=== PATIENT | female | born 1935 | race American Indian/Alaskan Native ===

== ENCOUNTER 2017-07-14 14:53 | Emergency (ER) | payer MEDICARE, MEDICAID ==
--- NOTE | 2017-07-14 14:53 | EDM.PDOC ---
ED HPI GENERAL MEDICAL PROBLEM - General Chief Complaint: Cardiovascular Problem Stated Complaint: BY AMBULANCE,HYPERTENSION Time Seen by Provider: 07/14/17 14:45 Source of Information: Reports: Patient, RN (home health nurse) History Limitations: Reports: No Limitations - History of Present Illness INITIAL COMMENTS - FREE TEXT/NARRATIVE: This 81 yo female patient was brought to the ED by [facility] due to high blood pressure. The patient was sent to the ED by the home health nurse reporting that the patient has not been taking her medications correctly. The patient reports she took 1 blood pressure medication this morning and 1 aspirin this morning. According to the patient's records, she is supposed to be taking Metoprolol Tartrate (50 mg) 1 by mouth 2 times per day and Lisinopil (20 mg) to take 1 by mouth daily. The patient reports her daughter fills her pill boxes, but her son also did something with her medications. The patient does not know what medications she is on or when she is supposed to be taking the medications. The patient reports she has an appointment with her primary care facility tomorrow to talk about her medications. The patient reports she feels normal at this time. Onset: Today Duration: Constant Location: Reports: Other Severity: Mild Improves with: Reports: None Worsens with: Reports: None Associated Symptoms: Reports: No Other Symptoms - Related Data Allergies Allergy/AdvReac Type Severity Reaction Status Date / Time No Known Allergies Allergy Verified 07/14/17 14:25 Home Meds: Home Meds Lisinopril [Prinivil] 20 mg PO DAILY #30 tablet 02/05/16 [Rx] Multivitamins/Minerals [Vitamins and Minerals] 1 tab PO WITHBREAKFAST tablet [Rx] Sodium Chloride 1 gm PO BID #60 tablet 02/05/16 [Rx] Acetaminophen 500 mg PO TID PRN 07/14/17 [History] Ca Carbonate/Vitamin D3/Vit K [Calcium + D Soft Chewable Tab] 1 each PO DAILY [History] Docusate Sodium/Sennosides [Senna Plus] 1 tab PO BEDTIME 07/14/17 [History] Iron Polysaccharide Complex [Ferric X-150] 1 cap PO DAILY 07/14/17 [History] Loperamide [Imodium] 1 tab PO TID PRN 07/14/17 [History] Magnesium Oxide [Magnesium] 200 mg PO DAILY 07/14/17 [History] Metoprolol Tartrate 50 mg PO BID 07/14/17 [History] Ranitidine HCl [Ranitidine] 150 mg PO DAILY 07/14/17 [History] Past Medical History HEENT History: Reports: None Cardiovascular History: Reports: Hypertension Respiratory History: Reports: None Gastrointestinal History: Reports: Chronic Constipation Genitourinary History: Reports: None CHILD ADVOCATE History: Reports: None Musculoskeletal History: Reports: None Neurological History: Reports: None Psychiatric History: Reports: None Endocrine/Metabolic History: Reports: None Hematologic History: Reports: None Immunologic History: Reports: None Oncologic (Cancer) History: Reports: None Dermatologic History: Reports: Other (See Below) Other Dermatologic History: See wound assessment - Infectious Disease History Infectious Disease History: Reports: None - Past Surgical History Head Surgeries/Procedures: Reports: None Cardiovascular Surgical History: Reports: None Social & Family History - Family History Family Medical History: Noncontributory - Tobacco Use Smoking Status *Q: Never Smoker - Caffeine Use Caffeine Use: Reports: Coffee - Alcohol Use Days Per Week of Alcohol Use: 0 Number of Drinks Per Day: 1 Total Drinks Per Week: 0 - Recreational Drug Use Recreational Drug Use: No ED ROS GENERAL - Review of Systems Review Of Systems: ROS reveals no pertinent complaints other than HPI. ED EXAM, GENERAL - Physical Exam Exam: See Below Exam Limited By: No Limitations General Appearance: Alert, WD/WN, No Apparent Distress Eye Exam: Bilateral Eye: EOMI, Normal Inspection, PERRL Ears: Normal External Exam, Normal Canal, Hearing Grossly Normal, Normal TMs Nose: Normal Inspection, Normal Mucosa, No Blood Throat/Mouth: Normal Inspection, Normal Lips, Normal Teeth, Normal Gums, Normal Oropharynx, Normal Voice, No Airway Compromise Head: Atraumatic, Normocephalic Neck: Normal Inspection, Supple, Non-Tender, Full Range of Motion Respiratory/Chest: No Respiratory Distress, Lungs Clear, Normal Breath Sounds, No Accessory Muscle Use, Chest Non-Tender Cardiovascular: Normal Peripheral Pulses, No Edema, No Gallop, No JVD, No Murmur , No Rub, Tachycardia GI/Abdominal: Normal Bowel Sounds, Soft, Non-Tender, No Organomegaly, No Distention, No Abnormal Bruit, No Mass (Female) Exam: Deferred Rectal (Female) Exam: Deferred Back Exam: Normal Inspection, Full Range of Motion, NT Extremities: Normal Inspection, Normal Range of Motion, Non-Tender, Normal Capillary Refill, No Pedal Edema Neurological: Alert, Oriented, CN II-XII Intact, Normal Cognition, Normal Gait, Normal Reflexes, No Motor/Sensory Deficits Psychiatric: Normal Affect, Normal Mood Skin Exam: Warm, Dry, Intact, Normal Color, No Rash Lymphatic: No Adenopathy Course - Vital Signs Last Recorded V/S: Last Vital Signs Temp 36.6 C 07/14/17 14:31 Pulse 103 H 07/14/17 15:48 Resp 17 07/14/17 14:31 BP 172/105 H 07/14/17 15:48 Pulse Ox 97 07/14/17 14:31 - Orders/Labs/Meds Orders: Active Orders 24 hr Category Date Time Status EKG Documentation Completion [RC] URGENT Care 07/14/17 14:37 Active Labs: Laboratory Tests 07/14/17 07/14/17 Range/Units 14:50 14:50 WBC 7.3 (5.0-10.0) 10^3/uL RBC 4.38 (4.2-5.4) 10^6/uL Hgb 12.5 D (12.0-16.0) g/dL Hct 38.4 (37.0-47.0) % MCV 87.7 (80-100) fL MCH 28.5 (27.0-34.0) pg MCHC 32.6 L (33.0-35.0) g/dL Plt Count 308 D (150-450) 10^3/uL Neut % (Auto) 65.5 (42.2-75.2) % Lymph % (Auto) 23.0 (20.5-50.1) % [place] % (Auto) 9.4 H (2-8) % Eos % (Auto) 1.8 (1.0-3.0) % Baso % (Auto) 0.3 (0.0-1.0) % Sodium 132 L (135-145) mmol/L Potassium 3.8 (3.6-5.0) mmol/L Chloride 98 L (101-111) mmol/L Carbon Dioxide 25.0 (21.0-31.0) mmol/L Anion Gap 12.8 BUN 11 (7-18) mg/dL Creatinine 0.8 (0.6-1.3) mg/dL Est Cr Clr Drug Dosing 54.69 mL/min Estimated GFR (MDRD) > 60 BUN/Creatinine Ratio 13.75 Glucose 104 (74-105) mg/dL Calcium 8.7 (8.4-10.2) mg/dl Total Bilirubin 0.5 (0.2-1.0) mg/dL AST 23 (10-42) IU/L ALT 15 (10-60) IU/L Alkaline Phosphatase 85 (42-121) IU/L Troponin I < 0.02 (0.00-0.02) ng/ml Total Protein 7.6 (6.7-8.2) g/dl Albumin 3.3 (3.2-5.5) g/dl Globulin 4.3 Albumin/Globulin Ratio 0.77 Meds: Medications Discontinued Medications Generic Name Dose Route Start Last Admin Trade Name Freq PRN Reason Stop Dose Admin Metoprolol Tartrate 25 mg 07/14/17 15:36 07/14/17 15:48 Lopressor PO 07/14/17 15:37 25 mg ONETIME ONE Administration Departure - Departure Time of Disposition: 16:25 Disposition: Home, Self-Care 01 Condition: Fair Clinical Impression: Noncompliance with medication regimen Hypertension Qualifiers: Hypertension type: unspecified Qualified Code(s): I10 - Essential (primary) hypertension Instructions: Hypertension, Vovb-iz-Mlem, Managing Your Hypertension Forms: ED Department Discharge Care Plan Goals: The patient was advised of the examination, lab, EKG and x-ray results during the visit. The patient was advised to take her medications as prescribed. The patient should review her medications with her primary care provider tomorrow as scheduled. If the patient has any additional symptoms or concerns, the patient should follow-up with her primary care facility or return to the emergency department. - My Orders Last 24 Hours: My Active Orders 07/14/17 14:37 EKG Documentation Completion [RC] URGENT - Assessment/Plan Last 24 Hours: My Active Orders 07/14/17 14:37 EKG Documentation Completion [RC] URGENT
[2017-07-14 15:26] LABS: ANION GAP 12.8; CHLORIDE,CL 98 mmol/L (101-111); SODIUM,NA 132 mmol/L (135-145)
[2017-07-14] MEDS ORDERED: Metoprolol Tartrate 25 MG Tab PO ONE (15:36)
[2017-07-14 15:49] VITALS: BP 172/105
--- NOTE | 2017-07-15 13:19 | EKG ---
07/14/2017- ALEJANDRO PAZ - EKG per my reading shows sinus rhythm at a rate of 105. [facility] /[id number]
== END 2017-07-14 16:32 | disposition home or self-care (01) ==
LOC: DL.ED 14:53
DX: I10 Essential (primary) hypertension (principal); Z91.14 Patient's other noncompliance with medication regimen; Z79.899 Other long term (current) drug therapy
CPT/HCPCS: 36415; 71045; 80053; 84484; 85025; 93005; 93010; 99284; A9270

== ENCOUNTER 2018-07-15 16:16 | Inpatient (IN) | payer MEDICARE, MEDICAID ==
--- NOTE | 2018-07-15 16:48 | EDM.PDOC ---
ED HPI GENERAL MEDICAL PROBLEM - General Chief Complaint: General Stated Complaint: UNKNOWN-AMBULANCE Time Seen by Provider: 07/15/18 16:47 Source of Information: Reports: Patient, EMS, EMS Notes Reviewed, RN, RN Notes Reviewed, Other (POA, drywall metal stud worker, home health nurse) History Limitations: Reports: No Limitations - History of Present Illness INITIAL COMMENTS - FREE TEXT/NARRATIVE: Pt to ER per [facility] per the request of POA and home health nurse. POA states the patient was removed from the longterm by family and has not been well taken care of there. Patient BP running high. Patient states she has not been ill recently and does not have any pain anywhere. Onset: Gradual - Related Data Allergies Allergy/AdvReac Type Severity Reaction Status Date / Time No Known Allergies Allergy Verified 07/14/17 14:25 Home Meds: Home Meds Multivitamins/Minerals [Vitamins and Minerals] 1 tab PO WITHBREAKFAST tablet [Rx] Sodium Chloride 1 gm PO BID #60 tablet 02/05/16 [Rx] Acetaminophen 500 mg PO TID PRN 07/14/17 [History] Ca Carbonate/Vitamin D3/Vit K [Calcium + D Soft Chewable Tab] 1 each PO DAILY [History] Docusate Sodium/Sennosides [Senna Plus] 1 tab PO BEDTIME 07/14/17 [History] Iron Polysaccharide Complex [Ferric X-150] 150 mg PO DAILY 07/14/17 [History] Loperamide [Imodium] 1 cap PO TID PRN 07/14/17 [History] Magnesium Oxide [Magnesium] 200 mg PO DAILY 07/14/17 [History] Metoprolol Tartrate 50 mg PO BID 07/14/17 [History] Ranitidine HCl [Ranitidine] 150 mg PO DAILY 07/14/17 [History] Past Medical History HEENT History: Reports: None Cardiovascular History: Reports: Hypertension Respiratory History: Reports: None Gastrointestinal History: Reports: Chronic Constipation Genitourinary History: Reports: None HOME SPECIALIST History: Reports: None Musculoskeletal History: Reports: None Neurological History: Reports: None Psychiatric History: Reports: None Endocrine/Metabolic History: Reports: None Hematologic History: Reports: None Immunologic History: Reports: None Oncologic (Cancer) History: Reports: None Dermatologic History: Reports: Other (See Below) Other Dermatologic History: See wound assessment - Infectious Disease History Infectious Disease History: Reports: None - Past Surgical History Head Surgeries/Procedures: Reports: None Cardiovascular Surgical History: Reports: None Social & Family History - Family History Family Medical History: Noncontributory - Caffeine Use Caffeine Use: Reports: Coffee ED ROS GENERAL - Review of Systems Review Of Systems: ROS reveals no pertinent complaints other than HPI. ED EXAM, GENERAL - Physical Exam Exam: See Below Exam Limited By: No Limitations General Appearance: Alert, WD/WN, No Apparent Distress Eye Exam: Bilateral Eye: EOMI Ears: Normal External Exam, Hearing Grossly Normal Nose: Normal Inspection Throat/Mouth: Normal Inspection, Normal Voice, No Airway Compromise Head: Atraumatic, Normocephalic Neck: Normal Inspection, Supple, Non-Tender Respiratory/Chest: No Accessory Muscle Use, Chest Non-Tender, Crackles (bases bilaterally), Rhonchi (upper lobes bilaterally) Cardiovascular: Normal Peripheral Pulses, Regular Rate, Rhythm, No Edema, No Gallop, No JVD, No Murmur, No Rub GI/Abdominal: Normal Bowel Sounds, Soft, Non-Tender (Female) Exam: Deferred Rectal (Female) Exam: Deferred Back Exam: Normal Inspection, Full Range of Motion Extremities: Limited Range of Motion Neurological: Alert, Oriented Psychiatric: Normal Affect, Normal Mood Skin Exam: Warm, Dry, Other (lower legs and feet very dry and scaly, sore to the outer right ankle, approx 1.5 x 1.5. ) Lymphatic: No Adenopathy Course - Vital Signs Last Recorded V/S: Last Vital Signs Temp 98.2 F 07/15/18 17:50 Pulse 95 07/15/18 17:50 Resp 16 07/15/18 17:50 BP 173/99 H 07/15/18 17:50 Pulse Ox 99 07/15/18 17:50 - Orders/Labs/Meds Orders: Active Orders 24 hr Category Date Time Status Peripheral IV Care [RC] . DIRECTED Care 07/15/18 17:28 Active Chest 1V Frontal [CR] Stat Exams 07/15/18 17:27 Taken CULTURE URINE [RM] Stat Lab 07/15/18 17:30 Received Sodium Chloride 0.9% [Normal Saline] 1,000 ml Med 07/15/18 18:25 Active IV .BOLUS Sodium Chloride 0.9% [Saline Flush] Med 07/15/18 17:27 Active 10 ml FLUSH ASDIRECTED PRN Peripheral IV Insertion Adult [OM.PC] Stat Oth 07/15/18 17:27 Ordered Medication Orders Sodium Chloride (Normal Saline) 1,000 mls @ 100 mls/hr IV .BOLUS ONE Stop: 07/16/18 04:24 Last Admin: 07/15/18 18:32 Dose: 100 mls/hr Sodium Chloride (Saline Flush) 10 ml FLUSH ASDIRECTED PRN PRN Reason: Keep Vein Open Last Admin: 07/15/18 17:43 Dose: 10 ml Labs: Laboratory Tests 07/15/18 07/15/18 07/15/18 Range/Units 17:30 17:36 17:36 WBC 6.3 (5.0-10.0) 10^3/uL RBC 4.02 L (4.2-5.4) 10^6/uL Hgb 9.6 L D (12.0-16.0) g/dL Hct 31.3 L (37.0-47.0) % MCV 77.9 L D (80-100) fL MCH 23.9 L (27.0-34.0) pg MCHC 30.7 L (33.0-35.0) g/dL Plt Count 294 (150-450) 10^3/uL Neut % (Auto) 64.0 (42.2-75.2) % Lymph % (Auto) 26.9 (20.5-50.1) % [place] % (Auto) 7.1 (2-8) % Eos % (Auto) 1.7 (1.0-3.0) % Baso % (Auto) 0.3 (0.0-1.0) % Sodium 128 L (135-145) mmol/L Potassium 3.4 L (3.6-5.0) mmol/L Chloride 96 L (101-111) mmol/L Carbon Dioxide 21.0 (21.0-31.0) mmol/L Anion Gap 14.4 BUN 14 (7-18) mg/dL Creatinine 0.7 (0.6-1.3) mg/dL Est Cr Clr Drug Dosing 52.58 mL/min Estimated GFR (MDRD) > 60 BUN/Creatinine Ratio 20.00 Glucose 90 (74-105) mg/dL Calcium 8.4 (8.4-10.2) mg/dl Total Bilirubin 0.5 (0.2-1.0) mg/dL AST 22 (10-42) IU/L ALT 10 (10-60) IU/L Alkaline Phosphatase 87 (42-121) IU/L Total Protein 8.5 H (6.7-8.2) g/dl Albumin 3.5 (3.2-5.5) g/dl Globulin 5.0 Albumin/Globulin Ratio 0.70 Urine Color Yellow (YELLOW) Urine Appearance Turbid (CLEAR) Urine pH 7.0 (5.0-9.0) Ur Specific [place] 1.015 (1.005-1.030) Urine Protein Negative (NEGATIVE) Urine Glucose (UA) Negative (NEGATIVE) Urine Ketones Negative (NEGATIVE) Urine Occult Blood Negative (NEGATIVE) Urine Nitrite Positive H (NEGATIVE) Urine Bilirubin Negative (NEGATIVE) Urine Urobilinogen 0.2 (0.2-1.0) mg/dL Ur Leukocyte Esterase Moderate H (NEGATIVE) Urine RBC 0-5 /HPF Urine WBC 20-30 H (0-5/HPF) /HPF Ur Epithelial Cells Few /HPF Amorphous Sediment Few (0/HPF) /HPF Urine Bacteria Many H (0-FEW/HPF) /HPF Urine Mucus Many H /LPF Meds: Medications Generic Name Dose Route Start Last Admin Trade Name Freq PRN Reason Stop Dose Admin Sodium Chloride 1,000 mls @ 100 mls/hr 07/15/18 18:25 07/15/18 18:32 Normal Saline IV 07/16/18 04:24 100 mls/hr .BOLUS ONE Administration Sodium Chloride 10 ml 07/15/18 17:27 07/15/18 17:43 Saline Flush FLUSH 10 ml ASDIRECTED PRN Administration Keep Vein Open - Radiology Interpretation Free Text/Narrative:: Chest xray: FINDINGS: Lungs: There is diffuse mild nonspecific prominence of the subpleural pulmonary interstitium. No focal consolidation. Prior questionable density right upper lung does not persist, and likely represented summation shadow artifact. Pleural space: Unremarkable. No pleural effusion. No pneumothorax. Heart/Mediastinum: Unremarkable. No cardiomegaly. Bones/joints: Unremarkable. IMPRESSION: Interstitial prominence is nonspecific, possibly representing bronchitis. Thank you for allowing us to participate in the care of your patient. Dictated and Authenticated by: Ovidio Cueva MD 07/15/2018 6:02 PM Central Time ([place] & [place]) See rad report - Re-Assessments/Exams Free Text/Narrative Re-Assessment/Exam: 07/15/18 18:40 Discussed patient case with Dr. Ibanez who agreed to accept the patient for admission to observation. Called AMADEO Yepez, who will come to the ER and visit with Dr. Ibanez. Departure - Departure Time of Disposition: 18:39 Disposition: Refer to Observation Condition: Fair Clinical Impression: Hyponatremia UTI (urinary tract infection) Qualifiers: Urinary tract infection type: site unspecified Hematuria presence: without hematuria Qualified Code(s): N39.0 - Urinary tract infection, site not specified Hypertension Qualifiers: Hypertension type: unspecified Qualified Code(s): I10 - Essential (primary) hypertension Anemia Qualifiers: Anemia type: unspecified type Qualified Code(s): D64.9 - Anemia, unspecified - Discharge Information *PRESCRIPTION DRUG MONITORING PROGRAM REVIEWED*: No *COPY OF PRESCRIPTION DRUG MONITORING REPORT IN PATIENT LOTTIE: No Forms: ED Department Discharge - My Orders Last 24 Hours: My Active Orders 07/15/18 17:27 Chest 1V Frontal [CR] Stat Sodium Chloride 0.9% [Saline Flush] 10 ml FLUSH ASDIRECTED PRN Peripheral IV Insertion Adult [OM.PC] Stat 07/15/18 17:28 Peripheral IV Care [RC] . DIRECTED 07/15/18 17:30 CULTURE URINE [RM] Stat 07/15/18 18:25 Sodium Chloride 0.9% [Normal Saline] 1,000 ml IV .BOLUS - Assessment/Plan Last 24 Hours: My Active Orders 07/15/18 17:27 Chest 1V Frontal [CR] Stat Sodium Chloride 0.9% [Saline Flush] 10 ml FLUSH ASDIRECTED PRN Peripheral IV Insertion Adult [OM.PC] Stat 07/15/18 17:28 Peripheral IV Care [RC] . DIRECTED 07/15/18 17:30 CULTURE URINE [RM] Stat 07/15/18 18:25 Sodium Chloride 0.9% [Normal Saline] 1,000 ml IV .BOLUS
[2018-07-15] MEDS ORDERED: Sodium Chloride 0.9% 10 ML Syringe FLUSH PRN (17:27)
[2018-07-15 18:04] LABS: ANION GAP 14.4; CHLORIDE,CL 96 mmol/L (101-111); SODIUM,NA 128 mmol/L (135-145)
[2018-07-15] MEDS ORDERED: Sodium Chloride 0.9% 1,000 ML IV ONE (18:25)
[2018-07-15] MEDS ORDERED: Aluminum Hydroxide/Magnesium Hydroxide/Simethicone Susp 30 ML Cup PO PRN (20:07)
[2018-07-15] MEDS ORDERED: Magnesium Hydroxide 400 MG/5 ML Susp 30 ML Cup PO PRN (20:07)
[2018-07-15] MEDS ORDERED: Acetaminophen 325 MG Tab PO PRN (20:07)
[2018-07-15] MEDS ORDERED: Docusate Sodium 100 MG Cap PO PRN (20:07)
[2018-07-15] MEDS ORDERED: Bisacodyl 10 MG Supp RECTAL PRN (20:07)
[2018-07-15] MEDS ORDERED: Loperamide 2 MG Cap PO PRN (20:14)
[2018-07-15] MEDS ORDERED: Sodium Chloride 0.9% 500 ML IV SCH (20:15)
--- NOTE | 2018-07-15 20:20 | PCM.HP ---
H&P History of Present Illness - General Date of Service: 07/15/18 Admit Problem/Dx: Admission Diagnosis/Problem Admission Diagnosis/Problem UTI (urinary tract infection) due to urinary indwelling catheter Source of Information: Patient History Limitations: Reports: No Limitations - History of Present Illness Initial Comments - Free Text/Narative: Patient is 82 y/o F with past medical history of hypertension, iron deficiency anemia, chronic venous leg ulcers. Patient was brought to the ER by POA who reports patient is not being taken care of well at home. Patient was removed from long-term by family and brought home recently. As per POA, patient is not well taken care of. When I asked the patient why she was here she said she does not know. She denies any complaint. No chest pain, SOB. Initial evaluation in the ER showed UTI, hyponatremia, hypokalemia. Cxr showed evidence of bronchitis. Patient is being admitted to the hospital for further evaluation and management. POA requesting patient be placed back to [place]. Onset of Symptoms: Reports: Today, Gradual Improves with: Reports: None Worsens with: Reports: None Associated Symptoms: Reports: No Other Symptoms - Related Data Allergies/Adverse Reactions: Allergies Allergy/AdvReac Type Severity Reaction Status Date / Time No Known Allergies Allergy Verified 07/14/17 14:25 Home Medications: Home Meds Multivitamins/Minerals [Vitamins and Minerals] 1 tab PO WITHBREAKFAST tablet [Rx] Sodium Chloride 1 gm PO BID #60 tablet 02/05/16 [Rx] Acetaminophen 500 mg PO TID PRN 07/14/17 [History] Ca Carbonate/Vitamin D3/Vit K [Calcium + D Soft Chewable Tab] 1 each PO DAILY [History] Docusate Sodium/Sennosides [Senna Plus] 1 tab PO BEDTIME 07/14/17 [History] Iron Polysaccharide Complex [Ferric X-150] 150 mg PO DAILY 07/14/17 [History] Loperamide [Imodium] 1 cap PO TID PRN 07/14/17 [History] Magnesium Oxide [Magnesium] 200 mg PO DAILY 07/14/17 [History] Metoprolol Tartrate 50 mg PO BID 07/14/17 [History] Ranitidine HCl [Ranitidine] 150 mg PO DAILY 07/14/17 [History] Past Medical History HEENT History: Reports: None Cardiovascular History: Reports: Hypertension Respiratory History: Reports: None Gastrointestinal History: Reports: Chronic Constipation Genitourinary History: Reports: None DOMESTIC MAID History: Reports: None Musculoskeletal History: Reports: None Neurological History: Reports: None Psychiatric History: Reports: None Endocrine/Metabolic History: Reports: None Hematologic History: Reports: None Immunologic History: Reports: None Oncologic (Cancer) History: Reports: None Dermatologic History: Reports: Other (See Below) Other Dermatologic History: See wound assessment - Infectious Disease History Infectious Disease History: Reports: None - Past Surgical History Head Surgeries/Procedures: Reports: None Cardiovascular Surgical History: Reports: None Social & Family History - Family History Family Medical History: Noncontributory - Tobacco Use Smoking Status *Q: Never Smoker - Caffeine Use Caffeine Use: Reports: Coffee - Recreational Drug Use Recreational Drug Use: No H&P Review of Systems - Review of Systems: Review Of Systems: See Below General: Reports: No Symptoms HEENT: Reports: No Symptoms Pulmonary: Reports: No Symptoms Cardiovascular: Reports: No Symptoms Gastrointestinal: Reports: No Symptoms Genitourinary: Reports: No Symptoms Musculoskeletal: Reports: No Symptoms Skin: Reports: No Symptoms Psychiatric: Reports: No Symptoms Neurological: Reports: No Symptoms Hematologic/Lymphatic: Reports: No Symptoms Immunologic: Reports: No Symptoms Exam - Exam Exam: See Below - Vital Signs Vital Signs: Last Vital Signs Temp 97.7 F 07/15/18 19:32 Pulse 109 H 07/15/18 19:32 Resp 18 07/15/18 19:32 BP 141/88 H 07/15/18 19:32 Pulse Ox 100 07/15/18 19:32 Weight: 93 lb 9.6 oz - Exam Quality Assessment: DVT Prophylaxis General: Alert, Oriented, 4 HEENT: PERRLA, Hearing Intact, Mucosa Moist & [place], Nares Patent, Normal Nasal Septum, Posterior Pharynx Clear, Conjunctiva Clear, EOMI, EACs Clear, TMs Clear Neck: Supple, Trachea Midline, 2 Lungs: Clear to Auscultation, Normal Respiratory Effort Cardiovascular: Regular Rate, Regular Rhythm GI/Abdominal Exam: Normal Bowel Sounds, Soft, Non-Tender, No Organomegaly, No Distention, No Abnormal Bruit, No Mass, Pelvis Stable (Female) Exam: Normal External Exam, Normal Speculum Exam, Normal Bimanual Exam Rectal (Female) Exam: Normal Exam, Normal Rectal Tone Back Exam: Normal Inspection, Full Range of Motion, NT Extremities: Normal Inspection, Normal Range of Motion, Non-Tender, No Pedal Edema, Normal Capillary Refill, Other (chronic venous ulcer to right leg) Skin: Warm, Dry, Intact Neurological: Cranial Nerves Intact, Reflexes Equal Bilateral Neuro Extensive - Mental Status: Alert, Oriented x3, Normal Mood/Affect, Normal Cognition Neuro Extensive - Motor, Sensory, Reflexes: CN II-XII Intact, Normal Gait, Normal Reflexes Psychiatric: Alert, Normal Affect, Normal Mood - Patient Data Lab Results Last 24 hrs: Laboratory Results - last 24 hr 07/15/18 07/15/18 07/15/18 Range/Units 17:30 17:36 17:36 WBC 6.3 (5.0-10.0) 10^3/uL RBC 4.02 L (4.2-5.4) 10^6/uL Hgb 9.6 L D (12.0-16.0) g/dL Hct 31.3 L (37.0-47.0) % MCV 77.9 L D (80-100) fL MCH 23.9 L (27.0-34.0) pg MCHC 30.7 L (33.0-35.0) g/dL Plt Count 294 (150-450) 10^3/uL Neut % (Auto) 64.0 (42.2-75.2) % Lymph % (Auto) 26.9 (20.5-50.1) % [place] % (Auto) 7.1 (2-8) % Eos % (Auto) 1.7 (1.0-3.0) % Baso % (Auto) 0.3 (0.0-1.0) % Sodium 128 L (135-145) mmol/L Potassium 3.4 L (3.6-5.0) mmol/L Chloride 96 L (101-111) mmol/L Carbon Dioxide 21.0 (21.0-31.0) mmol/L Anion Gap 14.4 BUN 14 (7-18) mg/dL Creatinine 0.7 (0.6-1.3) mg/dL Est Cr Clr Drug Dosing 52.58 mL/min Estimated GFR (MDRD) > 60 BUN/Creatinine Ratio 20.00 Glucose 90 (74-105) mg/dL Calcium 8.4 (8.4-10.2) mg/dl Total Bilirubin 0.5 (0.2-1.0) mg/dL AST 22 (10-42) IU/L ALT 10 (10-60) IU/L Alkaline Phosphatase 87 (42-121) IU/L Total Protein 8.5 H (6.7-8.2) g/dl Albumin 3.5 (3.2-5.5) g/dl Globulin 5.0 Albumin/Globulin Ratio 0.70 Urine Color Yellow (YELLOW) Urine Appearance Turbid (CLEAR) Urine pH 7.0 (5.0-9.0) Ur Specific [place] 1.015 (1.005-1.030) Urine Protein Negative (NEGATIVE) Urine Glucose (UA) Negative (NEGATIVE) Urine Ketones Negative (NEGATIVE) Urine Occult Blood Negative (NEGATIVE) Urine Nitrite Positive H (NEGATIVE) Urine Bilirubin Negative (NEGATIVE) Urine Urobilinogen 0.2 (0.2-1.0) mg/dL Ur Leukocyte Esterase Moderate H (NEGATIVE) Urine RBC 0-5 /HPF Urine WBC 20-30 H (0-5/HPF) /HPF Ur Epithelial Cells Few /HPF Amorphous Sediment Few (0/HPF) /HPF Urine Bacteria Many H (0-FEW/HPF) /HPF Urine Mucus Many H /LPF Result Diagrams: 07/16/18 06:00 07/16/18 06:00 *Q Meaningful Use (ADM) - VTE Risk Assess *Q Other Thrombophilia Type: HTN untreated - Problem List (1) Hypokalemia SNOMED Code(s): 19446033 ICD Code: E87.6 - HYPOKALEMIA Status: Acute Current Visit: Yes (2) Adult failure to thrive SNOMED Code(s): 755911982 ICD Code: R62.7 - ADULT FAILURE TO THRIVE Status: Acute Current Visit: Yes (3) Anemia SNOMED Code(s): 562877129 ICD Code: D64.9 - ANEMIA, UNSPECIFIED Status: Acute Current Visit: No Qualifiers: Anemia type: unspecified type Qualified Code(s): D64.9 - Anemia, unspecified (4) Hypertension SNOMED Code(s): 87374863 ICD Code: I10 - ESSENTIAL (PRIMARY) HYPERTENSION Status: Acute Current Visit: No Qualifiers: Hypertension type: unspecified Qualified Code(s): I10 - Essential (primary ) hypertension (5) Hyponatremia SNOMED Code(s): 14965486 ICD Code: E87.1 - HYPO-OSMOLALITY AND HYPONATREMIA Status: Acute Priority : Medium Current Visit: No (6) Iron deficiency anemia SNOMED Code(s): 58751282 ICD Code: D50.9 - IRON DEFICIENCY ANEMIA, UNSPECIFIED Status: Acute Current Visit: No (7) Noncompliance with medication regimen SNOMED Code(s): 478874107 ICD Code: Z91.14 - PATIENT'S OTHER NONCOMPLIANCE WITH MEDICATION REGIMEN Status: Acute Current Visit: No (8) UTI (urinary tract infection) SNOMED Code(s): 88183382 ICD Code: N39.0 - URINARY TRACT INFECTION, SITE NOT SPECIFIED Status: Acute Current Visit: No Qualifiers: Urinary tract infection type: site unspecified Hematuria presence: without hematuria Qualified Code(s): N39.0 - Urinary tract infection, site not specified (9) Wound of right lower extremity SNOMED Code(s): 696147574, 197580615 ICD Code: S81.801A - UNSPECIFIED OPEN WOUND, RIGHT LOWER LEG, INITIAL ENCOUNTER Status: Acute Priority: High Current Visit: No Qualifiers: Encounter type: subsequent encounter Qualified Code(s): S81.801D - Unspecified open wound, right lower leg, subsequent encounter Problem List Initiated/Reviewed/Updated: Yes Orders Last 24hrs: Active Orders 24 hr Category Date Time Status Patient Status [ADT] Routine ADT 07/15/18 20:07 Ordered Ambulate [RC] ASDIRECTED Care 07/15/18 20:07 Ordered Antiembolic Devices [RC] .Routine Care 07/15/18 20:11 Ordered Intake and Output [RC] QSHIFT Care 07/15/18 20:09 Ordered Notify Provider Vital Signs [RC] ASDIRECTED Care 07/15/18 20:09 Ordered Peripheral IV Care [RC] . DIRECTED Care 07/15/18 17:28 Active VTE/DVT Education [RC] PER UNIT ROUTINE Care 07/15/18 20:11 Ordered Vital Signs [RC] Q4H Care 07/15/18 20:07 Ordered Regular Diet [DIET] Diet 07/15/18 Breakfast Ordered Chest 1V Frontal [CR] Stat Exams 07/15/18 17:27 Taken CULTURE URINE [RM] Stat Lab 07/15/18 17:30 Received Acetaminophen [Tylenol] Med 07/15/18 20:07 Ordered 650 mg PO Q4H PRN Alum Hydrox/Mag Hydrox/Simeth [Mag-Al Plus] Med 07/15/18 20:07 Ordered 30 ml PO Q4H PRN Bisacodyl [Dulcolax] Med 07/15/18 20:07 Ordered 10 mg RECTAL DAILY PRN Ca Carbonate/Vitamin D3/Vit K [Calcium + D Soft Med 07/16/18 09:00 Ordered Chewable Tab] 1 each PO DAILY Docusate Sodium [Colace] Med 07/15/18 20:07 Ordered 100 mg PO DAILY PRN Heparin Sodium Med 07/15/18 20:15 Ordered 5,000 units SUBCUT Q12H Iron Polysaccharides Complex [Ferrex 150] Med 07/16/18 09:00 Ordered 150 mg PO DAILY Loperamide [Imodium] Med 07/15/18 20:14 Ordered 1 cap PO TID PRN Magnesium Hydroxide [Milk of Magnesia] Med 07/15/18 20:07 Ordered 30 ml PO BID PRN Magnesium Oxide [Magnesium] Med 07/16/18 09:00 Ordered 200 mg PO DAILY Metoprolol Tartrate [Lopressor] Med 07/15/18 21:00 Ordered 50 mg PO BID Multivitamins/Minerals [Vitamins and Minerals] Med 07/16/18 08:00 Ordered 1 tab PO WITHBREAKFAST Potassium Chloride [Klor-Con 10] Med 07/16/18 08:00 Ordered 40 meq PO BIDMEALS Ranitidine HCl [Ranitidine] Med 07/16/18 09:00 Ordered 150 mg PO DAILY Sodium Chloride Med 07/15/18 21:00 Ordered 1 gm PO BID Sodium Chloride 0.9% @ 100 MLS/HR(500ml) Med 07/15/18 20:15 Ordered Sodium Chloride 0.9% [Normal Saline] 500 ml IV ASDIRECTED Sodium Chloride 0.9% [Normal Saline] 1,000 ml Med 07/15/18 18:25 Active IV .BOLUS Sodium Chloride 0.9% [Saline Flush] Med 07/15/18 17:27 Active 10 ml FLUSH ASDIRECTED PRN cefTRIAXone [Rocephin] 1 gm Med 07/15/18 20:15 Ordered Sodium Chloride 0.9% [Normal Saline] 50 ml IV Q24H DVT/VTE Prophylaxis Reflex [OM.PC] Routine Oth 07/15/18 20:07 Ordered Peripheral IV Insertion Adult [OM.PC] Stat Oth 07/15/18 17:27 Ordered Resuscitation Status Routine Resus Stat 07/15/18 20:07 Ordered Medication Orders Acetaminophen (Tylenol) 650 mg PO Q4H PRN PRN Reason: Pain (mild 1-3 )/fever Al Hydroxide/Mg Hydroxide (Mag-Al Plus) 30 ml PO Q4H PRN PRN Reason: Dyspepsia Bisacodyl (Dulcolax) 10 mg RECTAL DAILY PRN PRN Reason: Constipation Docusate Sodium (Colace) 100 mg PO DAILY PRN PRN Reason: Constipation Heparin Sodium (Porcine) (Heparin Sodium) 5,000 units SUBCUT Q12H YENY Sodium Chloride (Normal Saline) 1,000 mls @ 100 mls/hr IV .BOLUS ONE Stop: 07/16/18 04:24 Last Admin: 07/15/18 18:32 Dose: 100 mls/hr Ceftriaxone Sodium 1 gm/ (Sodium Chloride) 50 mls @ 50 mls/hr IV Q24H YENY Sodium Chloride (Normal Saline) 500 mls @ 100 mls/hr IV ASDIRECTED YENY Loperamide HCl (Imodium) mg PO TID PRN PRN Reason: Diarrhea Magnesium Hydroxide (Milk Of Magnesia) 30 ml PO BID PRN PRN Reason: Constipation Metoprolol Tartrate (Lopressor) 50 mg PO BID [facility] Multivitamins/Minerals (Vitamins And Minerals) 1 tab PO WITHBREAKFAST [facility] Non-Formulary Medication (Ca Carbonate/Vitamin D3/Vit K [Calcium + D Soft Chewable Tab]) 1 each PO DAILY [facility] Non-Formulary Medication (Magnesium Oxide [Magnesium]) 200 mg PO DAILY [facility] Non-Formulary Medication (Ranitidine Hcl [Ranitidine]) 150 mg PO DAILY [facility] Polysaccharide Iron Complex (Ferrex 150) 150 mg PO DAILY [facility] Potassium Chloride (Klor-Con 10) 40 meq PO BIDMEALS [facility] Sodium Chloride (Saline Flush) 10 ml FLUSH ASDIRECTED PRN PRN Reason: Keep Vein Open Last Admin: 07/15/18 17:43 Dose: 10 ml Sodium Chloride (Sodium Chloride) 1 gm PO BID [facility] Assessment/Plan Comment:: UTI Urinalysis shows a evidence of UTI Urine culture IV ceftriaxone IVF Hyponatremia This is chronic. Patient on sodium chloride tablets Patient has no symptoms consistent IV fluid, N/S Continue sodium chloride tablets Hypokalemia PO replacement Hypertension BP uncontrol at presentation Patient not compliant with medications Resume all medications Monitor BP closely Adult failure to thrive Dietitian consult Identification deficiency anemia Patient on iron supplement H and H stable Continue iron supplement Monitor H&H No need for transfusion at this time Chronic right leg venous ulcers No signs of infection Daily dressing wound care consult Disposition: POA wants patient to be placed back to [place]. SW consult Diet Regular Code DNI/DNR
[2018-07-15] MEDS ORDERED: Sodium Chloride 0.9% 1,000 ML IV SCH (20:45)
[2018-07-15] MEDS ORDERED: cefTRIAXone 1 GM in Sodium Chloride 0.9% 50 ML IV SCH (21:00)
[2018-07-15] MEDS: Heparin Sodium 5,000 Units/ML Vial SUBCUT SCH (21:28)
[2018-07-15] MEDS: METOPROLOL TARTRATE 50 MG PO SCH (21:29)
[2018-07-15] MEDS: SODIUM CHLORIDE 1 GM PO SCH (21:30)
[2018-07-16 06:47] LABS: ANION GAP 10.9; CHLORIDE,CL 105 mmol/L (101-111); SODIUM,NA 134 mmol/L (135-145)
[2018-07-16] MEDS ORDERED: Potassium Chloride 10 MEQ Tab.ER PO SCH (08:00)
[2018-07-16] MEDS ORDERED: Multivitamins, Therapeutic with Minerals Tab PO SCH (08:00)
[2018-07-16] MEDS: Heparin Sodium 5,000 Units/ML Vial SUBCUT SCH (08:17)
[2018-07-16] MEDS ORDERED: Famotidine 20 MG Tab PO SCH (09:00)
[2018-07-16] MEDS ORDERED: Iron Polysaccharides Complex 150 MG Cap PO SCH (09:00)
[2018-07-16] MEDS ORDERED: Calcium Carbonate/Vitamin D3 1250 MG-200 Unit Tab PO SCH (09:00)
[2018-07-16] MEDS: SODIUM CHLORIDE 1 GM PO SCH (09:18)
[2018-07-16] MEDS: METOPROLOL TARTRATE 50 MG PO SCH (09:19)
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
[2018-07-16] MEDS: Potassium Chloride 10 MEQ Tab.ER PO SCH ×2 (12:43→17:55)
[2018-07-16] MEDS: Multivitamins, Therapeutic with Minerals Tab PO SCH (12:51)
[2018-07-16] MEDS: Iron Polysaccharides Complex 150 MG Cap PO SCH (12:52)
[2018-07-16] MEDS: Famotidine 20 MG Tab PO SCH (12:52)
[2018-07-16] MEDS: Calcium Carbonate/Vitamin D3 1250 MG-200 Unit Tab PO SCH (12:53)
[2018-07-16] MEDS ORDERED: hydrALAZINE 20 MG/ML SDV IVPUSH PRN (21:57)
[2018-07-17 06:48] LABS: ANION GAP 11.7; CHLORIDE,CL 105 mmol/L (101-111); SODIUM,NA 132 mmol/L (135-145)
[2018-07-17] MEDS: Iron Polysaccharides Complex 150 MG Cap PO SCH (09:03)
[2018-07-17] MEDS: Famotidine 20 MG Tab PO SCH (09:04)
[2018-07-17] MEDS: Potassium Chloride 10 MEQ Tab.ER PO SCH ×2 (09:04→17:36)
[2018-07-17] MEDS: Calcium Carbonate/Vitamin D3 1250 MG-200 Unit Tab PO SCH (09:04)
[2018-07-17] MEDS: Multivitamins, Therapeutic with Minerals Tab PO SCH (09:04)
[2018-07-17] MEDS: Nitrofurantoin Monohydrate/Macrocrystalline 100 MG Cap PO SCH ×2 (10:36→20:59)
[2018-07-17] MEDS: amLODIPine 5 MG Tab PO SCH (10:37)
[2018-07-17] MEDS: Loperamide 2 MG Cap PO PRN (10:37)
[2018-07-17] MEDS: Acetaminophen 325 MG Tab PO PRN ×2 (10:38→20:59)
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
[2018-07-17] MEDS ORDERED: Sodium Chloride 0.9% 10 ML Syringe FLUSH PRN (12:05)
[2018-07-18 09:28] LABS: SODIUM,NA 127 mmol/L (135-145)
[2018-07-18 09:36] LABS: ANION GAP 11.3; CHLORIDE,CL 100 mmol/L (101-111)
[2018-07-18] MEDS: Calcium Carbonate/Vitamin D3 1250 MG-200 Unit Tab PO SCH (10:09)
[2018-07-18] MEDS: Potassium Chloride 10 MEQ Tab.ER PO SCH ×2 (10:09→17:29)
[2018-07-18] MEDS: Iron Polysaccharides Complex 150 MG Cap PO SCH (10:09)
[2018-07-18] MEDS: Multivitamins, Therapeutic with Minerals Tab PO SCH (10:09)
[2018-07-18] MEDS: Nitrofurantoin Monohydrate/Macrocrystalline 100 MG Cap PO SCH ×2 (10:09→21:16)
[2018-07-18] MEDS: Famotidine 20 MG Tab PO SCH (10:10)
[2018-07-18] MEDS: amLODIPine 5 MG Tab PO SCH (10:10)
[2018-07-18] MEDS ORDERED: Sodium Chloride 0.9% 250 ML IV SCH (10:45)
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
[2018-07-18] MEDS ORDERED: Sodium Chloride 0.9% 1,000 ML IV SCH (11:45)
[2018-07-18] MEDS: Loperamide 2 MG Cap PO PRN (21:21)
[2018-07-18] MEDS: Acetaminophen 325 MG Tab PO PRN (21:21)
[2018-07-19 06:51] LABS: ANION GAP 11.7; CHLORIDE,CL 99 mmol/L (101-111); SODIUM,NA 127 mmol/L (135-145)
[2018-07-19 08:07] VITALS: BP 155/81
[2018-07-19] MEDS: Iron Polysaccharides Complex 150 MG Cap PO SCH (09:36)
[2018-07-19] MEDS: Multivitamins, Therapeutic with Minerals Tab PO SCH (09:36)
[2018-07-19] MEDS: Potassium Chloride 10 MEQ Tab.ER PO SCH (09:37)
[2018-07-19] MEDS: amLODIPine 5 MG Tab PO SCH (09:37)
[2018-07-19] MEDS: Famotidine 20 MG Tab PO SCH (09:38)
[2018-07-19] MEDS: Nitrofurantoin Monohydrate/Macrocrystalline 100 MG Cap PO SCH (09:39)
[2018-07-19] MEDS: Calcium Carbonate/Vitamin D3 1250 MG-200 Unit Tab PO SCH (09:39)
== END 2018-07-19 10:30 | DRG 699 ==
LOC: DL.ED 16:16 → DL.MS 19:06 → UNDOADMOB 19:06 → DL.MS 20:07 → UNDOADMOB 07-16 10:12 → DL.MS 07-16 10:12
PROVIDERS: ADMIT Student in an Organized Health Care Education/Training Program; ATTEND Student in an Organized Health Care Education/Training Program
DX: T83.511A Infection and inflammatory reaction due to indwelling urethral catheter, initial encounter (principal); E87.1 Hypo-osmolality and hyponatremia; T74.91XA Unspecified adult maltreatment, confirmed, initial encounter; Z68.1 Body mass index [BMI] 19.9 or less, adult; Z66 Do not resuscitate; I10 Essential (primary) hypertension; D50.9 Iron deficiency anemia, unspecified; I86.8 Varicose veins of other specified sites; E87.6 Hypokalemia; K59.09 Other constipation; R62.7 Adult failure to thrive; D64.9 Anemia, unspecified; B96.1 Klebsiella pneumoniae [K. pneumoniae] as the cause of diseases classified elsewhere; S81.801D Unspecified open wound, right lower leg, subsequent encounter; Z79.899 Other long term (current) drug therapy; Z91.14 Patient's other noncompliance with medication regimen
CPT/HCPCS: 36415; 71045; 80048; 80053; 81001; 82607; 82746; 83540; 83735; 85025; 87086; 87088; 87186; 96361; 96365; 96372; 99284-25; A9270-GY; G0378; J0360; J0696; J1644; J7030; J7050

== ENCOUNTER 2019-08-30 07:54 | Emergency (ER) | payer MEDICAID, MEDICARE ==
--- NOTE | 2019-08-30 07:36 | PCM.SN ---
- Free Text/Narrative Note: Jessica Ravi is an 84-year-old resident of [facility]. I received a call from the nursing staff at 7 AM this morning, stating that Jessica had been found on the floor in her room next to her bed. She stated that she was on the way to the bathroom when she fell. She is complaining of right hip pain. On exam the right foot was rotated inward and the right leg appeared shortened. These findings are concerning for a right hip fracture. There was no head trauma. No loss of consciousness. No other injuries. Vital signs at the time of assessment: BP 197/100. HR 77. RR 18. O2 sat 96% RA. Temp 98.1 F. Last ate supper last night. PMH: Hypertension. Constipation. Hypo Michael EMEA. Hyponatremia. Osteoarthritis. Vulnerable adult with court-appointed guardian. Impression: 1. Ground-level fall at intermediate with complaint of right hip pain. Finding suggests possible right hip fracture. 2. No head trauma no loss of consciousness. 3. Hypertension. BP following fall was elevated 197/100. Nursing staff instructed to give blood pressure medication: Amlodipine 5 mg 4. Code status: DNR/DNI. 5. Mrs. Ravi has a court-appointed guardian: Brittny Davenport/[employer]. The guardian was informed that she is been sent to the emergency department. We will have the guardian get in touch with the ER provider. Condition at the time of transfer to emergency department: Hemodynamically stable. Medications have been updated in [facility].
--- NOTE | 2019-08-30 07:56 | EDM.PDOC ---
ED HPI GENERAL MEDICAL PROBLEM - General Chief Complaint: Lower Extremity Injury/Pain Stated Complaint: FELL-RT HIP PAIN Time Seen by Provider: 08/30/19 07:45 Source of Information: Reports: Patient History Limitations: Reports: No Limitations - History of Present Illness INITIAL COMMENTS - FREE TEXT/NARRATIVE: This 84 yo female patient was brought to the ED from [facility] due to a ground level fall with right hip pain. The patient reports she was putting away a blanket this morning at 0200 when she tripped over her dresser drawer and fell. The patient reports she had been lying on the floor since that time. The patient reports pain in her right hip and buttocks at the time of arrival. The patient arrived to the [facility] van [facility] the [facility] seated in a wheelchair. [facility] staff reports they heard the patient fall at 0642 and immediately were at her side. The [facility] staff reports they have been in an out of the patient's room every 2 hours throughout the night. Onset: Today Onset Date: 08/30/19 Onset Time: 02:00 Duration: Constant Location: Reports: Lower Extremity, Right Quality: Reports: Ache, Dull Severity: Moderate Improves with: Reports: Rest Worsens with: Reports: Movement Context: Reports: Other (ground level fall with no loss of consciousness) Associated Symptoms: Reports: No Other Symptoms - Related Data Allergies Allergy/AdvReac Type Severity Reaction Status Date / Time No Known Allergies Allergy Verified 07/14/17 14:25 Home Meds: Home Meds Acetaminophen 500 mg PO TID MDD pain/fever 07/14/17 [History] Calcium Carb/Vitamin D3/Vit K1 [Calcium + D Soft Chewable Tab] 1 each PO DAILY 07/14/17 [History] Docusate Sodium/Sennosides [Senna Plus] 1 tab PO BEDTIME 07/14/17 [History] Magnesium Oxide 250 mg PO BID 07/19/18 [History] amLODIPine Besylate [Amlodipine Besylate] 5 mg PO DAILY 07/19/18 [History] Acetaminophen [Acetaminophen Extra Strength] 500 mg PO Q6H PRN 08/30/19 [History ] Famotidine 10 mg PO BID 08/30/19 [History] Potassium Chloride [Klor-Con M20] 20 meq PO BID 08/30/19 [History] Sodium Chloride 1 gm PO BID 08/30/19 [History] bisacodyL [Dulcolax] 10 mg RECTAL DAILY PRN 08/30/19 [History] Past Medical History HEENT History: Reports: None Cardiovascular History: Reports: Hypertension Respiratory History: Reports: None Gastrointestinal History: Reports: Chronic Constipation Genitourinary History: Reports: None [employer]LECT[employer]CH[employer] 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: None Musculoskeletal History: Reports: None Neurological History: Reports: None Psychiatric History: Reports: None Endocrine/Metabolic History: Reports: None Hematologic History: Reports: None Immunologic History: Reports: None Oncologic (Cancer) History: Reports: None Dermatologic History: Reports: Other (See Below) Other Dermatologic History: See wound assessment - Infectious Disease History Infectious Disease History: Reports: None - Past Surgical History Head Surgeries/Procedures: Reports: None Cardiovascular Surgical History: Reports: None Social & Family History - Family History Family Medical History: Noncontributory - Caffeine Use Caffeine Use: Reports: Coffee Review of Systems - Review of Systems Review Of Systems: Comprehensive ROS is negative, except as noted in HPI. ED EXAM, GENERAL - Physical Exam Exam: See Below Exam Limited By: No Limitations General Appearance: Alert, WD/WN, Mild Distress Eye Exam: Bilateral Eye: EOMI, Normal Inspection, PERRL Ears: Normal External Exam, Normal Canal, Hearing Grossly Normal, Normal TMs Nose: Normal Inspection, Normal Mucosa, No Blood Throat/Mouth: Normal Inspection, Normal Lips, Normal Teeth, Normal Gums, Normal Oropharynx, Normal Voice, No Airway Compromise Head: Atraumatic, Normocephalic Neck: Normal Inspection, Supple, Non-Tender, Full Range of Motion Respiratory/Chest: No Respiratory Distress, Lungs Clear, Normal Breath Sounds, No Accessory Muscle Use, Chest Non-Tender Cardiovascular: Normal Peripheral Pulses, Regular Rate, Rhythm, No Edema, No Gallop, No JVD, No Murmur, No Rub GI/Abdominal: Normal Bowel Sounds, Soft, Non-Tender, No Organomegaly, No Distention, No Abnormal Bruit, No Mass (Female) Exam: Deferred Rectal (Female) Exam: Deferred Back Exam: Normal Inspection, Full Range of Motion, NT Extremities: Leg Pain (right hip pain) Neurological: Alert, Oriented, CN II-XII Intact, Normal Cognition, Normal Gait, Normal Reflexes, No Motor/Sensory Deficits Psychiatric: Normal Affect, Normal Mood Skin Exam: Warm, Dry, Intact, Normal Color, No Rash Lymphatic: No Adenopathy Course - Vital Signs Last Recorded V/S: Last Vital Signs Temp 36.4 C 08/30/19 07:36 Pulse 78 08/30/19 07:36 Resp 16 08/30/19 07:36 BP 173/75 H 08/30/19 07:36 Pulse Ox 96 08/30/19 07:36 - Orders/Labs/Meds Orders: Active Orders 24 hr Category Date Time Status Hip Min 2V or 3V w Pelvis Rt [CR] Stat Exams 08/30/19 07:49 Taken CULTURE URINE [RM] Urgent Lab 08/30/19 08:20 Received Code Status [Resuscitation Status] Stat Resus Stat 08/30/19 07:37 Ordered Labs: Laboratory Tests 08/30/19 08/30/19 08/30/19 Range/Units 07:55 07:55 08:20 WBC 6.4 (5.0-10.0) 10^3/uL RBC 4.44 (4.2-5.4) 10^6/uL Hgb 12.2 D (12.0-16.0) g/dL Hct 38.3 (37.0-47.0) % MCV 86.3 D (80-100) fL MCH 27.5 (27.0-34.0) pg MCHC 31.9 L (33.0-35.0) g/dL Plt Count 227 (150-450) 10^3/uL Neut % (Auto) 60.2 (42.2-75.2) % Lymph % (Auto) 29.2 (20.5-50.1) % Curry % (Auto) 8.4 H (2-8) % Eos % (Auto) 2.0 (1.0-3.0) % Baso % (Auto) 0.2 (0.0-1.0) % Sodium 138 (136-145) mmol/L Potassium 4.0 (3.5-5.1) mmol/L Chloride 101 (98-107) mmol/L Carbon Dioxide 29 (21-32) mmol/L Anion Gap 12.0 (7-13) mEq/L BUN 11 (7-18) mg/dL Creatinine 0.77 (0.55-1.02) mg/dL Est Cr Clr Drug Dosing 50.00 mL/min Estimated GFR (MDRD) > 60 BUN/Creatinine Ratio 14.3 (No establ ref range) Glucose 101 H (74-99) mg/dL Calcium 8.9 (8.5-10.1) mg/dL Total Bilirubin 0.5 (0.2-1.0) mg/dL AST 19 (15-37) U/L ALT 22 (14-59) U/L Alkaline Phosphatase 128 H (46-116) U/L Total Protein 8.1 (6.4-8.2) g/dL Albumin 3.6 (3.4-5.0) g/dL Globulin 4.5 Albumin/Globulin Ratio 0.8 Urine Color Yellow (YELLOW) Urine Appearance Slightly cloudy (CLEAR) Urine pH 7.5 (5.0-9.0) Ur Specific [place] 1.025 (1.005-1.030) Urine Protein Negative (NEGATIVE) Urine Glucose (UA) Negative (NEGATIVE) Urine Ketones Negative (NEGATIVE) Urine Occult Blood Negative (NEGATIVE) Urine Nitrite Positive H (NEGATIVE) Urine Bilirubin Negative (NEGATIVE) Urine Urobilinogen 0.2 (0.2-1.0) mg/dL Ur Leukocyte Esterase Negative (NEGATIVE) Urine RBC Not seen /HPF Urine WBC 0-5 (0-5/HPF) /HPF Ur Epithelial Cells Occasional (NOT SEEN) /HPF Urine Bacteria Many H (0-FEW/HPF) /HPF Urine Mucus Not seen (NOT SEEN) /LPF Departure - Departure Time of Disposition: 08:51 Disposition: DC/Tfer to [facility] 02 Condition: Fair Clinical Impression: Closed right hip fracture Qualifiers: Encounter type: initial encounter Qualified Code(s): S72.001A - Fracture of unspecified part of neck of right femur, initial encounter for closed fracture - Discharge Information *PRESCRIPTION DRUG MONITORING PROGRAM REVIEWED*: Not Applicable *COPY OF PRESCRIPTION DRUG MONITORING REPORT IN PATIENT [place]OTTIE: Not Applicable Referrals: Nickie Srinivasan MD [Primary Care Provider] - Forms: Interfacility Transfer EMTALA Care Plan Goals: Discussed the patient's history, examination and x-ray results with Dr. Andersen ( Orthopedics with [facility] in [place]). Dr. Andersen accepted the patient for continued evaluation and care. The patient will be transported by [facility]. Sepsis Event Note - Focused Exam Vital Signs: Vital Signs Temp Pulse Resp BP Pulse Ox 08/30/19 07:36 36.4 C 78 16 173/75 H 96 Date Exam was Performed: 08/30/19 Time Exam was Performed: 10:13 - My Orders Last 24 Hours: My Active Orders 08/30/19 07:49 Hip Min 2V or 3V w Pelvis Rt [CR] Stat 08/30/19 08:20 CULTURE URINE [RM] Urgent - Assessment/Plan Last 24 Hours: My Active Orders 08/30/19 07:49 Hip Min 2V or 3V w Pelvis Rt [CR] Stat 08/30/19 08:20 CULTURE URINE [RM] Urgent
[2019-08-30 08:03] VITALS: BP 173/75; PULSE 78
[2019-08-30 08:23] LABS: CHLORIDE,CL 101 mmol/L (98-107); SODIUM,NA 138 mmol/L (136-145)
== END 2019-08-30 09:35 ==
LOC: DL.ED 07:54
DX: S32.401A Unspecified fracture of right acetabulum, initial encounter for closed fracture (principal); S72.001A Fracture of unspecified part of neck of right femur, initial encounter for closed fracture; I10 Essential (primary) hypertension; Z79.899 Other long term (current) drug therapy; W01.0XXA Fall on same level from slipping, tripping and stumbling without subsequent striking against object, initial encounter
CPT/HCPCS: 36415; 80053; 81001; 85025; 87086; 87088; 87186; 99285-25

== ENCOUNTER 2022-08-11 11:50 | Inpatient (IN) | payer MEDICAID ==
[2022-08-11] MEDS: Sodium Chloride 0.9% 10 ML Syringe FLUSH PRN ×3 (12:05→17:06)
[2022-08-11 12:45] LABS: ANION GAP 12.9 mEq/L (7-13)
[2022-08-11 12:57] LABS: CORONAVIRUS COVID-19 NAA NEGATIVE (NEGATIVE); RESPIRATORY SYNCYTIAL VIR NAA NEGATIVE (NEGATIVE)
[2022-08-11] MEDS ORDERED: Piperacillin/Tazobactam 4.5 GM in Sodium Chloride 0.9% 100 ML IV ONE (13:08)
[2022-08-11] MEDS ORDERED: Sodium Chloride 0.9% 1,000 ML IV ONE (13:13)
[2022-08-11] MEDS ORDERED: HYDROmorphone 0.5 MG/0.5 ML Syringe IVPUSH PRN (13:30)
[2022-08-11] MEDS ORDERED: Polyethylene Glycol 3350 Powder 17 GM Packet PO PRN (13:30)
[2022-08-11] MEDS ORDERED: Ondansetron 4 MG/2 ML SDV IVPUSH PRN (13:30)
[2022-08-11] MEDS ORDERED: Magnesium Hydroxide 400 MG/5 ML Susp 30 ML Cup PO PRN ×2 (13:30→16:15)
[2022-08-11] MEDS ORDERED: guaiFENesin/Dextromethorphan 100-10 MG/5 ML Soln 5 ML Cup PO PRN (13:36)
[2022-08-11] MEDS ORDERED: hydrALAZINE 20 MG/ML SDV IVPUSH PRN (13:46)
[2022-08-11] MEDS ORDERED: Metoprolol Tartrate 5 MG/5 ML SDV IVPUSH PRN (13:46)
[2022-08-11] MEDS ORDERED: Bisacodyl 10 MG Supp RECTAL PRN (13:48)
[2022-08-11] MEDS ORDERED: Acetaminophen 500 MG Tab PO SCH (14:00)
[2022-08-11] MEDS ORDERED: VANCOmycin 1.5 GM/300 ML 1.5 GM in Premix Bag 1 BAG IV ONE (15:00)
[2022-08-11] MEDS: Albuterol/Ipratropium 3.0-0.5 MG/3 ML Neb Soln NEB PRN (15:59)
[2022-08-11] MEDS ORDERED: Bismuth Subsalicylate 262 MG Tab.Chew PO PRN (16:15)
[2022-08-11] MEDS ORDERED: traMADol 50 MG Tab PO PRN (16:15)
[2022-08-11] MEDS: Piperacillin/Tazobactam 3.375 GM in Sodium Chloride 0.9% 100 ML IV SCH ×2 (17:08→23:47)
[2022-08-11] MEDS: Acetaminophen/HYDROcodone 325-5 MG Tab PO PRN (18:21)
[2022-08-11] MEDS: Saccharomyces Boulardii (Probiotic) 250 MG Cap PO SCH (20:16)
[2022-08-11] MEDS: Famotidine 20 MG Tab PO SCH (20:16)
[2022-08-11] MEDS: Acetaminophen 325 MG Tab PO PRN (20:16)
[2022-08-12] MEDS: Piperacillin/Tazobactam 3.375 GM in Sodium Chloride 0.9% 100 ML IV SCH ×4 (05:01→23:28)
[2022-08-12] MEDS: Albuterol/Ipratropium 3.0-0.5 MG/3 ML Neb Soln NEB PRN (05:04)
[2022-08-12] MEDS: Acetaminophen/HYDROcodone 325-5 MG Tab PO PRN ×2 (05:44→16:22)
[2022-08-12 06:17] LABS: ANION GAP 13.2 mEq/L (7-13)
[2022-08-12] MEDS: Albuterol/Ipratropium 3.0-0.5 MG/3 ML Neb Soln NEB SCH ×2 (07:43→19:32)
[2022-08-12] MEDS: amLODIPine 5 MG Tab PO SCH (08:56)
[2022-08-12] MEDS: Saccharomyces Boulardii (Probiotic) 250 MG Cap PO SCH ×2 (08:57→20:38)
[2022-08-12] MEDS: Famotidine 20 MG Tab PO SCH ×2 (08:57→20:40)
[2022-08-12] MEDS: guaiFENesin 600 MG Tab.ER PO SCH ×2 (08:57→20:40)
[2022-08-12] MEDS: Iron Polysaccharides Complex 150 MG Cap PO SCH (08:57)
[2022-08-12] MEDS: traMADol 50 MG Tab PO SCH (08:57)
[2022-08-12] MEDS: Acetaminophen 325 MG Tab PO PRN (20:38)
[2022-08-13] MEDS: Piperacillin/Tazobactam 3.375 GM in Sodium Chloride 0.9% 100 ML IV SCH ×4 (05:40→23:04)
[2022-08-13 06:41] LABS: ANION GAP 9.9 mEq/L (7-13)
[2022-08-13] MEDS: Albuterol/Ipratropium 3.0-0.5 MG/3 ML Neb Soln NEB SCH ×2 (07:54→17:45)
[2022-08-13] MEDS: Iron Polysaccharides Complex 150 MG Cap PO SCH (08:55)
[2022-08-13] MEDS: Saccharomyces Boulardii (Probiotic) 250 MG Cap PO SCH ×2 (08:56→20:21)
[2022-08-13] MEDS: amLODIPine 5 MG Tab PO SCH (08:56)
[2022-08-13] MEDS: guaiFENesin 600 MG Tab.ER PO SCH ×2 (08:56→20:21)
[2022-08-13] MEDS: Famotidine 20 MG Tab PO SCH ×2 (08:57→20:21)
[2022-08-13] MEDS: traMADol 50 MG Tab PO SCH (08:57)
[2022-08-14] MEDS: Piperacillin/Tazobactam 3.375 GM in Sodium Chloride 0.9% 100 ML IV SCH (05:18)
[2022-08-14 05:50] LABS: ANION GAP 10.6 mEq/L (7-13)
[2022-08-14] MEDS ORDERED: Magnesium Sulfate/Water 2 GM in Premix Bag 1 BAG IV ONE (06:47)
[2022-08-14 07:28] VITALS: BP 150/95; PULSE 95
[2022-08-14] MEDS: Albuterol/Ipratropium 3.0-0.5 MG/3 ML Neb Soln NEB SCH (07:48)
[2022-08-14] MEDS: Saccharomyces Boulardii (Probiotic) 250 MG Cap PO SCH (09:21)
[2022-08-14] MEDS: amLODIPine 5 MG Tab PO SCH (09:23)
[2022-08-14] MEDS: Famotidine 20 MG Tab PO SCH (09:23)
[2022-08-14] MEDS: Iron Polysaccharides Complex 150 MG Cap PO SCH (09:24)
[2022-08-14] MEDS: traMADol 50 MG Tab PO SCH (09:24)
[2022-08-14] MEDS: guaiFENesin 600 MG Tab.ER PO SCH (09:24)
== END 2022-08-14 10:30 | DRG 194 ==
LOC: DL.ED 11:50 → DL.MS 13:10
PROVIDERS: ADMIT Internal Medicine; ATTEND Internal Medicine
DX: J18.9 Pneumonia, unspecified organism (principal); R09.02 Hypoxemia; E87.1 Hypo-osmolality and hyponatremia; J96.11 Chronic respiratory failure with hypoxia; E87.8 Other disorders of electrolyte and fluid balance, not elsewhere classified; R73.9 Hyperglycemia, unspecified; N39.0 Urinary tract infection, site not specified; E88.09 Other disorders of plasma-protein metabolism, not elsewhere classified; Z66 Do not resuscitate; H54.7 Unspecified visual loss; K21.9 Gastro-esophageal reflux disease without esophagitis; M81.0 Age-related osteoporosis without current pathological fracture; D50.9 Iron deficiency anemia, unspecified; K59.09 Other constipation; Z28.89 Immunization not carried out for other reason; Z20.822 Contact with and (suspected) exposure to COVID-19; I10 Essential (primary) hypertension; Z99.81 Dependence on supplemental oxygen; Z79.899 Other long term (current) drug therapy
CPT/HCPCS: 0241U; 36415; 71045; 80048; 80053; 80202; 83605; 83735; 83880; 84145; 85025; 86140; 87040; 87070; 87086; 87205; 94640; 96365; 99223; 99233; 99238; 99284; 99285; A9270-GY; J2543; J3370; J3475; J3490; J7030; J7050; J7620-GY